=== PATIENT | female | born 1950 | race Asian ===

== ENCOUNTER → 2018-10-30 12:41 | Outpatient (CLI) | payer MEDICARE, OTHER, SELFPAY | PROVIDERS: Visit Provider Family Medicine | DX: M81.0 Age-related osteoporosis without current pathological fracture (principal); Z78.0 Asymptomatic menopausal state | CPT/HCPCS: 77080 ==

== ENCOUNTER → 2020-12-26 13:50 | Outpatient (CLI) | payer MEDICARE, OTHER, SELFPAY | PROVIDERS: PCP Family Medicine; Referring Provider Family Medicine; Visit Provider Family Medicine | DX: M81.0 Age-related osteoporosis without current pathological fracture (principal); Z78.0 Asymptomatic menopausal state | CPT/HCPCS: 77080 ==

== ENCOUNTER → 2020-12-29 10:48 | Outpatient (CLI) | payer MEDICARE, OTHER, SELFPAY ==
--- NOTE | 2020-12-29 10:51 | DI.MG.S_ITS ---
BILATERAL DIGITAL SCREENING MAMMOGRAM 3D/2D WITH CAD: 12/29/2020 CLINICAL: Routine screening. Comparison is made to exams dated: 08/28/2016 mammogram, 09/16/2017 mammogram, and 09/23/2018 mammogram - [facility]. The tissue of both breasts is predominantly fatty. Current study was also evaluated with a Computer Aided Detection (CAD) system. No significant masses, calcifications, or other findings are seen in either breast. There has been no significant interval change. IMPRESSION: NEGATIVE There is no mammographic evidence of malignancy. A 1 year screening mammogram is recommended. This exam was interpreted at Station ID: [id number]. NOTE: For mammograms, a report in lay terms will be sent to the patient. Approximately 15% of breast malignancies will not be visualized mammographically. In the management of a palpable breast mass, a negative mammogram must not discourage biopsy of a clinically suspicious lesion. Electronically Signed By: Gavin Paez M.D., jr/dominique:12/29/2020 13:17:10 letter sent: Normal Exam ACR BI-RADS Category 1: Negative 3341F
== END ==
PROVIDERS: PCP Family Medicine; Referring Provider Family Medicine; Visit Provider Family Medicine
DX: Z12.31 Encounter for screening mammogram for malignant neoplasm of breast (principal)
CPT/HCPCS: 77063; 77067

== ENCOUNTER → 2021-12-29 09:43 | Outpatient (CLI) | payer MEDICARE, OTHER, SELFPAY ==
--- NOTE | 2021-12-29 | DI.MG.S_ITS ---
BILATERAL DIGITAL SCREENING MAMMOGRAM 3D/2D WITH CAD: 12/29/2021 CLINICAL: Routine screening. Comparison is made to exams dated: 12/29/2020 mammogram - [facility], 09/23/2018 mammogram, and 09/16/2017 mammogram - [facility]. The tissue of both breasts is heterogeneously dense. This may lower the sensitivity of mammography. Current study was also evaluated with a Computer Aided Detection (CAD) system. There are benign vascular calcifications in both breasts. No significant masses, calcifications, or other findings are seen in either breast. There has been no significant interval change. IMPRESSION: BENIGN There is no mammographic evidence of malignancy. A 1 year screening mammogram is recommended. Based on the Tyrer Cuzick model (a risk assessment model) the patient's lifetime risk is 8.5% and her 10 year risk is 5.4%. According to the ACR, ACS, and NCCN guidelines, an annual breast MRI exam along with mammogram is recommended if the patient's lifetime risk is 20% or greater. This exam was interpreted at Station ID: [id number]. NOTE: For mammograms, a report in lay terms will be sent to the patient. Approximately 15% of breast malignancies will not be visualized mammographically. In the management of a palpable breast mass, a negative mammogram must not discourage biopsy of a clinically suspicious lesion. Electronically Signed By: Thao kenney/dominique:12/29/2021 14:26:17 letter sent: Normal Exam ACR BI-RADS Category 2: Benign Finding(s) 3342F
== END ==
PROVIDERS: PCP Nurse Practitioner Family; Referring Provider Family Medicine; Visit Provider Family Medicine
DX: Z12.31 Encounter for screening mammogram for malignant neoplasm of breast (principal)
CPT/HCPCS: 77063; 77067

== ENCOUNTER → 2022-01-19 11:26 | Outpatient (CLI) | payer MEDICARE, OTHER, SELFPAY ==
[2022-01-19 12:55] LABS: COVID19 -Nasal RAPID Negative (Negative)
== END ==
PROVIDERS: PCP Nurse Practitioner Family; Visit Provider Surgery
DX: Z20.822 Contact with and (suspected) exposure to COVID-19 (principal); Z01.812 Encounter for preprocedural laboratory examination
CPT/HCPCS: 87635; C9803

== ENCOUNTER 2022-01-22 11:53 | Day surgery (SDC) | payer MEDICARE, OTHER, SELFPAY ==
[2022-01-22] MEDS: SODIUM CHLORIDE 0.9% 1,000 ML 100 ML IV (12:22)
[2022-01-22 12:32] VITALS: BP 153/86; PULSE 94; RESP 18; TEMP 36.1; O2SAT 98; BMI 18.8
--- NOTE | 2022-01-22 12:35 | PM.HP.1 ---
History of Present Illness History of Present Illness Date Patient Seen: 01/22/22 Time Patient Seen: 12:36 Chief complaint: Colonoscopy Narrative: Positive FIT Meds Home Medications and Allergies Home Medications Medication Instructions Recorded Confirmed Type alendronate 70 mg tablet 70 tab PO DAILY 01/22/22 01/22/22 History fluticasone propionate 50 50 ea intranasal DAILY 01/22/22 01/22/22 History mcg/actuation nasal spray,suspension loratadine 10 mg tablet 10 tab PO DAILY 01/22/22 01/22/22 History Allergies Allergy/AdvReac Type Severity Reaction Status Date / Time Penicillins Allergy Mild Verified 01/22/22 12:22 Review of Systems Review of Systems ROS: Yes All systems reviewed with the patient and are negative except as otherwise documented Exam Const General: cooperative HENMT Head: normal to inspection Eyes General: appearance normal, both eyes and all related structures Neck Neck: normal visual inspection Chest Chest: normal inspection of the chest Resp Effort & Inspection: normal respiratory effort Cardio Rate: regular rate GI Inspection: normal to inspection Skin General: no rashes or lesions noted Neuro General: patient alert and patient awake Extrem General: normal to inspection and no pedal edema Psych Appearance: grossly normal Assessment & Plan Assessment & Plan narrative: 71-year-old with a positive FIT. Colonoscopy is pursued today. Time Spent With Patient Critical Care time: I spent a total of [] minutes of critical care time on this patient's care today; this time is exclusive of procedural time.
--- NOTE | 2022-01-22 12:37 | PM.PREOP ---
Pre-operative Note COVID-19 COVID-19 status: Negative Result date/Date tested (Pos, Neg/Pending): 01/19/22 Criteria for continued procedure: Possibility delay results in more complex future surgery or treatment Interval Note History & Physical reviewed/Exam performed by Physician: Yes Changes to H&P: No ASA Class (for procedural sedation): II
--- NOTE | 2022-01-22 13:39 | PM.OP.COLON ---
Operative Date/Time/Diagnoses Date of procedure: 01/22/22 Time of procedure: 13:39 Pre-op diagnosis: Positive FIT Post-op diagnosis: same Procedure & Clinicians Study performed: Colonoscopy Same procedure as scheduled: Yes Indications: Positive FIT Surgeon: Corbin Harper Procedure Notes SCOAP/Timeout: Done Procedure in detail: After the risks and benefits were explained, written and verbal informed consent was obtained. The patient was brought into the procedure room and placed into the left lateral decubitus position. Please see nurse phone screener notes for sedation details. Digital rectal examination was accomplished. The scope was introduced into the patient and advanced under direct visualization to the cecum as identified by the appendiceal orifice and ileocecal valve. The scope was slowly withdrawn to carefully examine the mucosa for any defects or lesions. Comprehensive imaging was accomplished throughout the rectum including the dentate line. The colon was decompressed, the scope was then removed from the patient who tolerated the procedure well. Pediatric colonoscope Bowel prep adequate Scope withdrawal time: 9 minutes Sedation minutes: 19 Specimen(s): none sent Complications: none Impression: The patient had some mild diverticulosis noted in the region of the sigmoid colon. No significant polyps mass lesions or inflammatory features identified throughout. Grade 1 internal hemorrhoids were detected. Endoscopic diagnosis 1. Mild diverticulosis 2. Mild internal hemorrhoids grade 1 Post-procedure Plan for aftercare: 1. Follow-up in primary care as before. 2. Follow up in GI clinic any time as needed. Disposition: PACU
[2022-01-22 13:42] VITALS: BP 115/56; PULSE 75; RESP 16; TEMP 36.7; O2SAT 98
[2022-01-22 13:47] VITALS: BP 115/67; PULSE 79; RESP 16; O2SAT 98
[2022-01-22 13:52] VITALS: BP 125/76; PULSE 68; RESP 15; O2SAT 98
== END 2022-01-22 14:07 | disposition home or self-care (01) ==
PROVIDERS: PCP Nurse Practitioner Family; Referring Provider Internal Medicine Gastroenterology; Visit Provider Internal Medicine Gastroenterology
PROC: 0DJD8ZZ Inspection of Lower Intestinal Tract, Via Natural or Artificial Opening Endoscopic (ICD-10-PCS; CPT 45378; principal; 2022-01-22 13:00)
DX: R19.5 Other fecal abnormalities (principal); K57.30 Diverticulosis of large intestine without perforation or abscess without bleeding; K64.0 First degree hemorrhoids
CPT/HCPCS: 45378; J2704

== ENCOUNTER → 2022-05-16 11:06 | Outpatient (CLI) | payer MEDICARE, OTHER, SELFPAY | PROVIDERS: PCP Nurse Practitioner Family; Referring Provider Nurse Practitioner Family; Visit Provider Nurse Practitioner Family | DX: M81.0 Age-related osteoporosis without current pathological fracture (principal); Z78.0 Asymptomatic menopausal state; Z79.83 Long term (current) use of bisphosphonates | CPT/HCPCS: 77080 ==

== ENCOUNTER → 2023-01-04 13:02 | Outpatient (CLI) | payer MEDICARE, OTHER, SELFPAY ==
--- NOTE | 2023-01-04 | DI.MG.S_ITS ---
BILATERAL DIGITAL SCREENING MAMMOGRAM 3D/2D WITH CAD: 01/04/2023 CLINICAL: Routine screening. Comparison is made to exams dated: 12/29/2021 mammogram, 12/29/2020 mammogram, 12/29/2020 mammogram - [facility], and 09/23/2018 mammogram - [facility]. Both breasts are heterogeneously dense, which may obscure small masses (category c / 51-75% glandular tissue). Current study was also evaluated with a Computer Aided Detection (CAD) system. There are benign vascular calcifications in both breasts. No significant masses, calcifications, or other findings are seen in either breast. There has been no significant interval change. IMPRESSION: BENIGN There is no mammographic evidence of malignancy. A 1 year screening mammogram is recommended. Based on the Tyrer Cuzick model (a risk assessment model) the patient's lifetime risk is 8.1% and her 10 year risk is 5.6%. According to the ACR, ACS, and NCCN guidelines, an annual breast MRI exam along with mammogram is recommended if the patient's lifetime risk is 20% or greater. This exam was interpreted at Station ID: [id number]. NOTE: For mammograms, a report in lay terms will be sent to the patient. Approximately 15% of breast malignancies will not be visualized mammographically. In the management of a palpable breast mass, a negative mammogram must not discourage biopsy of a clinically suspicious lesion. Electronically Signed By: Tomi echevarria/dominique:01/04/2023 17:35:37 letter sent: Normal Exam ACR BI-RADS Category 2: Benign Finding(s) 3342F
== END ==
PROVIDERS: PCP Nurse Practitioner Family; Referring Provider Nurse Practitioner Family; Visit Provider Nurse Practitioner Family
DX: Z12.31 Encounter for screening mammogram for malignant neoplasm of breast (principal)
CPT/HCPCS: 77063; 77067

== ENCOUNTER 2023-07-20 12:25 | Emergency (ER) | payer MEDICARE, OTHER, SELFPAY ==
[2023-07-20 12:27] VITALS: BP 162/78; PULSE 85; RESP 15; TEMP 36.3; O2SAT 98; BMI 19.4
--- NOTE | 2023-07-20 12:29 | DI.RAD.S_ITS ---
PROCEDURE: XR KNEE LT 3V INDICATIONS: left knee pain,difficulty walking TECHNIQUE: 3 views of the knee were acquired. COMPARISON: None. FINDINGS: Bones: No fractures or dislocations. No suspicious bony lesions. Moderate medial lateral compartmental joint space narrowing Soft tissues: Small joint effusion IMPRESSION: Moderate osteoarthritis with small joint effusion Approved by: Lalit Padilla M.D. on 07/20/2023 at 13:57
[2023-07-20 14:59] VITALS: BP 161/75; PULSE 78; RESP 22; O2SAT 100
--- NOTE | 2023-07-20 15:08 | ED.EXTPRO ---
HPI - Extremity Problem <Evelyne Chappell PA-C - Last Filed: 07/20/23 15:49> General Chief complaint: Extremity Problem,Nontraumatic Stated complaint: lt knee pain Time Seen by Provider: 07/20/23 13:33 Source: patient Mode of arrival: Ambulatory History of Present Illness HPI Narrative: 73-year-old female with history of osteoarthritis in the right knee here for acute left knee pain that started yesterday afternoon. States that she recalls stepping off of the stairs and feeling a twinge in her left knee and her pain continued to get worse after that. No other injuries that she can recollect. She has a longstanding history of OA in the right knee and has received a cortisone injection before. She denies any fevers, or redness, swelling, warmth of the left knee. She otherwise feels well. Has tried Tylenol 1 time but otherwise no treatments so far. Related Data Home Medications Medication Instructions Recorded Confirmed alendronate 70 mg tablet 70 tab PO DAILY 01/22/22 01/22/22 fluticasone propionate 50 50 ea intranasal DAILY 01/22/22 01/22/22 mcg/actuation nasal spray,suspension loratadine 10 mg tablet 10 tab PO DAILY 01/22/22 01/22/22 Allergies Allergy/AdvReac Type Severity Reaction Status Date / Time Penicillins Allergy Mild Verified 07/20/23 12:27 Review of Systems <Evelyne Chappell PA-C - Last Filed: 07/20/23 15:49> Review of Systems ROS Unobtainable: All systems reviewed & are unremarkable except as noted in HPI and below Patient History <Evelyne Chappell PA-C - Last Filed: 07/20/23 15:49> Social History household members: spouse Smoking Status: Never smoker alcohol intake: never Smoking Status: Never smoker alcohol intake frequency: holidays/special occasions only Substance Use Type: does not use Exam <DAI Nunes Last Filed: 07/20/23 15:49> Narrative Exam Narrative: GENERAL: Well-developed, well-nourished, appears stated age. In no acute distress HEAD: Atraumatic. Normocephalic. EYES: Pupils equal round and reactive. Extraocular motions intact. No scleral icterus. No injection or drainage. ENT: Nose without bleeding, purulent drainage. Airway patent. NECK: Trachea midline. Non tender RESPIRATORY: Respiratory rate and effort normal EXTREMITIES: Left knee without any obvious swelling, redness, warmth. Full range of motion present. No ligamentous laxity. No midline tenderness. Able to ambulate but limps. Normal distal pulses. No obvious effusion. NEURO: AOx3. SKIN: No rash or erythema of visible areas Initial Vital Signs Initial Vital Signs: Vital Signs Temperature 97.4 F L 07/20/23 12:27 Pulse Rate 85 07/20/23 12:27 Respiratory Rate 15 07/20/23 12:27 Blood Pressure 162/78 H 07/20/23 12:27 Pulse Oximetry 98 07/20/23 12:27 Oxygen Delivery Method Room Air 07/20/23 12:27 <Lexie Brunson MD - Last Filed: 07/20/23 16:00> Initial Vital Signs Initial Vital Signs: Vital Signs Temperature 97.4 F L 07/20/23 12:27 Pulse Rate 85 07/20/23 12:27 Respiratory Rate 15 07/20/23 12:27 Blood Pressure 162/78 H 07/20/23 12:27 Pulse Oximetry 98 07/20/23 12:27 Oxygen Delivery Method Room Air 07/20/23 12:27 Course <Evelyne Chappell PA-C - Last Filed: 07/20/23 15:49> Orders Ordered: ED Orders 07/20/23 12:29 XR knee LT 3V Stat Vital Signs Vital signs: Vital Signs - 8 hr 07/20/23 12:27 07/20/23 14:59 Temperature 97.4 F L Pulse Rate 85 78 Respiratory Rate 15 22 Blood Pressure 162/78 H 161/75 H Pulse Oximetry 98 100 Oxygen Delivery Method Room Air Room Air <Lexie Brunson MD - Last Filed: 07/20/23 16:00> Orders Ordered: ED Orders 07/20/23 12:29 XR knee LT 3V Stat Vital Signs Vital signs: Vital Signs - 8 hr 07/20/23 12:27 07/20/23 14:59 Temperature 97.4 F L Pulse Rate 85 78 Respiratory Rate 15 22 Blood Pressure 162/78 H 161/75 H Pulse Oximetry 98 100 Oxygen Delivery Method Room Air Room Air MDM - Extremity (Nontraumatic) <Evelyne Chappell PA-C - Last Filed: 07/20/23 15:49> Imaging Data Extremity x-ray #1: Radiologist's Impression: [address] [address] XRay Report Signed Patient: Rosalind Rodriguez MR#: [id number] : 1950 Acct:[id number] Age/Sex: 73 / F Date of Service: 07/20/23 Loc: ED Accession Number: [id number] Procedure: XR knee LT 3V Ordering Provider: Lexie Brunson MD PROCEDURE: XR KNEE LT 3V INDICATIONS: left knee pain,difficulty walking TECHNIQUE: 3 views of the knee were acquired. COMPARISON: None. FINDINGS: Bones: No fractures or dislocations. No suspicious bony lesions. Moderate medial lateral compartmental joint space narrowing Soft tissues: Small joint effusion IMPRESSION: Moderate osteoarthritis with small joint effusion Approved by: Lalit Padilla M.D. on 07/20/2023 at 13:57 MDM Narrative Medical decision making narrative: Vital signs normal, nontoxic appearing. History and examination are consistent with a flare-up of osteoarthritis. She has no redness, swelling, warmth, or other signs associated with a infection or gout. There was no trauma or significant injury to the knee. She does have a history of OA in the other knee. Her x-ray shows moderate OA with a small joint effusion. We discussed rest, ice, compression, elevation, and the use of NSAIDs such as ibuprofen relief. We also discussed knee exercises to strengthen the quadriceps to help prevent future flare-ups of her arthritis. Patient instructed follow up with her PCP within the next couple of weeks if she has not improving to discuss alternative therapies for her arthritis. Multiple etiologies for patient's symptoms considered including, but not limited to: Osteoarthritis, gout, septic arthritis, ligament or tendon injury, tendinitis Patient's symptoms improved over duration of stay with above-stated therapies. Findings and discharge diagnosis discussed with patient/family followed by verbalization of understanding Return precautions discussed with patient/family whom verbalize understanding of diagnosis and plan Discharge Plan Departure Patient Disposition: Home Clinical Impression: Osteoarthritis of left knee Qualifiers: Osteoarthritis type: primary Qualified Code(s): M17.12 - Unilateral primary osteoarthritis, left knee Instructions: DI for Knee Pain, Certain Exercises May Help People with Knee Osteoarthritis Activity Restrictions/Additional Instructions: You were seen today for left knee pain. Your x-ray shows moderate osteoarthritis of the left knee with a small joint effusion. You had no other signs of infection urgent as this pain on your examination or your x-ray today. Please take Aleve twice daily for the next 5-7 days for your knee pain. Please ice the knee multiple times a day. When your pain starts to improve please continue doing the recommended exercises for your knee. Follow up with your primary physician if you have no improvement in the next 1-2 weeks to discuss other options for knee pain. Prescriptions: No Action fluticasone propionate 50 mcg/actuation spray,suspension 50 ea INTRANASAL DAILY alendronate 70 mg tablet 70 tab PO DAILY loratadine 10 mg tablet 10 tab PO DAILY Referrals: Jaky Carlisle ARNP [Primary Care Provider] - Stand Alone Forms: Patient Portal/API ED Sign-out <Lexie Brunson MD - Last Filed: 07/20/23 16:00> Cosign ED Attending Cosnasraature Attestation: I DID NOT SEE THIS PATIENT. I WAS AVAILABLE ALL TIMES FOR CONSULTATION.
== END 2023-07-20 15:23 | disposition home or self-care (01) ==
PROVIDERS: Emergency Provider Physician Assistant; PCP Nurse Practitioner Family
DX: M17.12 Unilateral primary osteoarthritis, left knee (principal)
CPT/HCPCS: 73562; 99281; 99283

== ENCOUNTER → 2024-02-04 13:01 | Outpatient (CLI) | payer MEDICARE, OTHER, SELFPAY ==
--- NOTE | 2024-02-04 13:02 | DI.MG.S_ITS ---
BILATERAL DIGITAL SCREENING MAMMOGRAM 3D/2D WITH CAD: 02/04/2024 CLINICAL: Routine screening. Comparison is made to exams dated: 01/04/2023 mammogram, 12/29/2021 mammogram, and 12/29/2020 mammogram - [facility]. Both breasts are heterogeneously dense, which may obscure small masses (category c / 51-75% glandular tissue). Current study was also evaluated with a Computer Aided Detection (CAD) system. No significant masses, calcifications, or other findings are seen in either breast. There has been no significant interval change. IMPRESSION: NEGATIVE There is no mammographic evidence of malignancy. A 1 year screening mammogram is recommended. Based on the Tyrer Cuzick model (a risk assessment model) the patient's lifetime risk is 7.6% and her 10 year risk is 5.7%. According to the ACR, ACS, and NCCN guidelines, an annual breast MRI exam along with mammogram is recommended if the patient's lifetime risk is 20% or greater. This exam was interpreted at Station ID: [id number]. NOTE: For mammograms, a report in lay terms will be sent to the patient. Approximately 15% of breast malignancies will not be visualized mammographically. In the management of a palpable breast mass, a negative mammogram must not discourage biopsy of a clinically suspicious lesion. Electronically Signed By: Kalyani Huang M.D., Ph.D. osmani/odminique:02/04/2024 16:22:30 letter sent: Normal Exam ACR BI-RADS Category 1: Negative 3341F
== END ==
LOC: MAMMO 13:02
PROVIDERS: PCP Nurse Practitioner Family; Referring Provider Nurse Practitioner Family; Visit Provider Nurse Practitioner Family
DX: Z12.31 Encounter for screening mammogram for malignant neoplasm of breast (principal); R92.333 Mammographic heterogeneous density, bilateral breasts
CPT/HCPCS: 77063; 77067

== ENCOUNTER → 2025-02-04 11:01 | Outpatient (CLI) | payer MEDICARE, OTHER, SELFPAY ==
--- NOTE | 2025-02-04 11:05 | DI.MG.S_ITS ---
MM screening mammo BI: 02/04/2025. BI-RADS: 1 CLINICAL: 74-year old female for bilateral screening mammogram. Tyrer-Cuzick lifetime risk of 2.9%. No personal or first-degree family history of breast cancer. PRIOR EXAMS 02/04/2024, 01/04/2023, 12/29/2021, 12/29/2020. MAMMOGRAPHY TECHNIQUE: 2D and 3D (tomosynthesis) digital mammographic views obtained, with additional images as needed for full coverage. Current study was also evaluated with a Computer Aided Detection (CAD) system. DENSITY C. The breasts are heterogeneously dense, which may obscure small masses. MAMMOGRAPHY FINDINGS Bilateral: No suspicious mass, asymmetry, microcalcification, or other abnormality seen. IMPRESSION: * No evidence of malignancy. RECOMMENDATIONS Bilateral * Annual screening mammography. OVERALL ASSESSMENT CATEGORY BI-RADS-1: Negative. The [employer] recommends annual screening mammography beginning at age 40 for women with average risk of breast cancer. ELECTRONICALLY SIGNED: Adore Cox M.D. on 02/04/2025 at 02:34:41 PM PT Interpreting Station ID: [id number]
== END ==
LOC: MAMMO 11:02
PROVIDERS: PCP Nurse Practitioner Family; Referring Provider Nurse Practitioner Family; Visit Provider Nurse Practitioner Family
DX: Z12.31 Encounter for screening mammogram for malignant neoplasm of breast (principal); R92.333 Mammographic heterogeneous density, bilateral breasts
CPT/HCPCS: 77063; 77067